=== PATIENT | female | born 1980 | race Caucasian/White ===

== ENCOUNTER 2021-06-20 09:42 | Inpatient (IN) ==
[2021-06-20 10:57] LABS: Bilirubin,Urine Negative (Negative); Blood,Urine Negative (Negative); Clarity,Urine Clear (Clear); Color,Urine Yellow (Yellow); Glucose,Urine (UA) Normal (Normal); Ketones,Urine Negative (Negative); Leukocyte Esterase,Urine Negative (Negative); Nitrite,Urine Negative (Negative); PH,Urine 6.5 pH Units (5.0-8.0); Protein,Urine Trace mg/dL (Neg-Trace); Specific Gravity,Urine 1.024 (1.010-1.025); Urobilinogen,Urine Normal (Normal)
[2021-06-20 11:14] LABS: Amphetamine Screen,Urine Negative ng/mL (Cutoff=1000); Barbiturate Screen,Urine Negative ng/mL (Cutoff=200); Benzodiazepines Screen,Urine Negative ng/mL (Cutoff=200); Cannabinoid Screen,Urine Positive ng/mL (Cutoff = 50); Cocaine Screen,Urine Negative ng/mL (Cutoff= 300); Opiate Screen,Urine Negative ng/mL (Cutoff=300); Phencyclidine Screen,Urine Negative ng/mL (Cutoff=25)
[2021-06-20 11:23] LABS: Basophils # 0.1 K/mcL (0.0-0.2); Basophils % 0.9 %; Eosinophils # 0.1 K/mcL (0.0-0.6); Eosinophils % 0.5 %; Hematocrit 39.6 % (35.3-44.9); Hemoglobin 11.7 g/dL (11.5-15.4); Immature Granulocytes % 0.4 % (0-4); Lymphocytes # 1.1 K/mcL (0.6-4.6); Lymphocytes % 11.6 %; Mean Corpuscular HGB Conc 29.5 g/dL (31.6-35.5); Mean Corpuscular Hemoglobin 21.7 pg (28.0-33.3); Mean Corpuscular Volume 73.5 fL (83.0-100.0); Monocytes # 0.4 K/mcL (0.0-1.3); Neutrophils # 7.6 K/mcL (1.6-8.9); Platelet Count 495 K/mcL (140-400); Red Blood Count 5.39 M/mcL (3.82-4.97); Red Cell Distribution Width 19.5 % (11.5-14.5); Segmented Neutrophils % 82.6 %; White Blood Count 9.2 K/mcL (4.3-11.1)
[2021-06-20 11:30] LABS: Acetaminophen < 10 mcg/mL (10-20); BUN/Creatinine Ratio 18 (6-26); Blood Urea Nitrogen 14 mg/dL (6-20); Calcium 9.6 mg/dL (8.6-10.3); Carbon Dioxide 28 mEq/L (23-29); Chloride 103 mEq/L (98-107); Chol/HDL Ratio 5.3 (0-4.9); Cholesterol 242 mg/dL (< 200); Ethanol < 10 mg/dL (Less than 10); Glucose 105 mg/dL (70-105); HDL Cholesterol 46 mg/dL (40-59); LDL Cholesterol,Calculated 170 mg/dL (< 100); Osmolality,Calculated 289 (280-300); Potassium 3.3 mEq/L (3.5-5.1); Salicylate < 2.5 mg/dL (15.0-30.0); Sodium 139 mEq/L (136-145); Triglycerides 131 mg/dL (< 150); eGFR For African Americans > 60 (> 60); eGFR For Non-African Americans > 60 (> 60)
[2021-06-20 11:50] LABS: Influenza A PCR Negative (Negative); Influenza B PCR Negative (Negative); Resp. Syncytial Virus PCR Negative (Negative)
[2021-06-20 11:56] LABS: SARS-CoV-2 by PCR (In House) Negative (Negative)
[2021-06-20 12:06] LABS: Estimated Average Glucose 128 mg/dl; Hemoglobin A1C 6.1 %
[2021-06-20] MEDS ORDERED: Potassium Chloride Elixir 20 MEQ/15 ML UDC PO ONE (15:31)
[2021-06-20] MEDS ORDERED: Ibuprofen 600 MG TABLET PO STA (17:38)
[2021-06-20] MEDS ORDERED: *HR* LORazepam 1 MG TABLET PO PRN (22:39)
[2021-06-20] MEDS ORDERED: Haloperidol Lactate 5 MG/ML VIAL IM PRN (22:39)
[2021-06-20] MEDS ORDERED: haloperidoL 5 MG TABLET PO PRN (22:39)
[2021-06-20] MEDS ORDERED: *HR* LORazepam 2 MG/ML VIAL IM PRN (22:39)
[2021-06-20] MEDS ORDERED: traZODone 50 MG TABLET PO PRN (22:39)
[2021-06-20] MEDS: hydrOXYzine pamoate 25 MG CAPSULE PO PRN (23:44)
[2021-06-21] MEDS ORDERED: Mag Hydrox/Al Hydrox/Simeth 30 ML UDC PO PRN (11:27)
[2021-06-21] MEDS ORDERED: MOM Conc 10 ML UD.LIQ PO PRN (11:27)
[2021-06-21] MEDS ORDERED: QUEtiapine Fumarate 25 MG TABLET PO PRN (11:29)
[2021-06-21] MEDS: BuPROPion XL (24 HR) 150 MG TABLET PO SCH (11:52)
[2021-06-21] MEDS: Furosemide 20 MG TABLET PO SCH (11:52)
[2021-06-22] MEDS: BuPROPion XL (24 HR) 150 MG TABLET PO SCH (08:58)
[2021-06-22] MEDS: Furosemide 20 MG TABLET PO SCH (08:58)
[2021-06-22] MEDS ORDERED: QUEtiapine Fumarate 25 MG TABLET PO PRN (11:21)
[2021-06-22] MEDS: QUEtiapine Fumarate 25 MG TABLET PO SCH (21:05)
[2021-06-23] MEDS: Furosemide 20 MG TABLET PO SCH (08:37)
[2021-06-23] MEDS: ARIPiprazole 5 MG TABLET PO SCH (08:37)
[2021-06-23] MEDS: BuPROPion XL (24 HR) 150 MG TABLET PO SCH (08:38)
[2021-06-23] MEDS: QUEtiapine Fumarate 25 MG TABLET PO SCH (20:41)
[2021-06-24] MEDS: BuPROPion XL (24 HR) 150 MG TABLET PO SCH (08:51)
[2021-06-24] MEDS: ARIPiprazole 5 MG TABLET PO SCH (08:52)
[2021-06-24] MEDS: Furosemide 20 MG TABLET PO SCH (08:52)
[2021-06-24] MEDS: hydroCHLOROthiazide 25 MG TABLET PO SCH (09:54)
[2021-06-24] MEDS: Acetaminophen 325 MG TABLET PO PRN (20:02)
[2021-06-24] MEDS: QUEtiapine Fumarate 25 MG TABLET PO SCH (21:09)
[2021-06-25] MEDS: Furosemide 20 MG TABLET PO SCH (09:08)
[2021-06-25] MEDS: BuPROPion XL (24 HR) 150 MG TABLET PO SCH (09:08)
[2021-06-25] MEDS: ARIPiprazole 5 MG TABLET PO SCH (09:08)
[2021-06-25] MEDS: hydroCHLOROthiazide 25 MG TABLET PO SCH (09:08)
[2021-06-25] MEDS: XELJANZ XR 11 MG PO SCH (09:09)
[2021-06-25] MEDS: Acetaminophen 325 MG TABLET PO PRN (20:27)
[2021-06-25] MEDS: QUEtiapine Fumarate 25 MG TABLET PO SCH (20:27)
[2021-06-26] MEDS: ARIPiprazole 5 MG TABLET PO SCH (09:00)
[2021-06-26] MEDS: hydroCHLOROthiazide 25 MG TABLET PO SCH (09:00)
[2021-06-26] MEDS: Furosemide 20 MG TABLET PO SCH (09:01)
[2021-06-26] MEDS: BuPROPion XL (24 HR) 150 MG TABLET PO SCH (09:01)
[2021-06-26] MEDS: XELJANZ XR 11 MG PO SCH (09:06)
[2021-06-26 09:50] VITALS: BP 110/91; PULSE 89; TEMP 97.9; O2SAT 99
[2021-06-26] MEDS: hydrOXYzine pamoate 25 MG CAPSULE PO PRN (13:03)
== END 2021-06-26 16:15 | disposition home or self-care (01) | DRG 817 ==
LOC: EMEROOARM 09:42 → 1ANU 22:24
PROVIDERS: ADMIT Psychiatry & Neurology Psychiatry; ATTEND Psychiatry & Neurology Psychiatry